=== PATIENT | female | born 1950 | race Caucasian/White ===

== ENCOUNTER → 2020-01-25 | Outpatient (CLI) | payer OTHER ==
[~2020-01-25] MED LIST: VENL75TA PO
== END ==
LOC: LAB 13:19
PROVIDERS: ATTEND Registered Nurse
DX: Z20.828 Contact with and (suspected) exposure to other viral communicable diseases (principal)
CPT/HCPCS: U0003-CS

== ENCOUNTER → 2020-01-28 | Day surgery (SDC) | payer MEDICARE, OTHER ==
[~2020-01-28] MED LIST changes: +IPRATRPIUM/ALBUTEROL 0.5/2.5MG 3 ML NEBU. NEB PRN; +IV RINGERS SOLUTION,LACTATED 1,000 ML IV SCH; +MIDAZOLAM HCL PF 2 MG/2 ML VIAL. IV ONE; +ONDANSETRON PF 4 MG/2 ML VIAL. IV PRN; +PROPOFOL 10,000 MCG/ML (20ML) VIAL IV ONE
[2020-01-28 13:42] VITALS: BP 114/74
--- NOTE | 2020-02-01 15:07 | PATHOLOGY ---
[facility] Accession Number: [id number] . 01 Material submitted: . colon - TRANSVERSE COLON POLYPS. Modifiers: transverse . 01 Clinical history: . COLONOSCOPY . 02 Diagnosis: Colon biopsy, transverse colon polyp; - Prominent mucosal fold, with small mucosal-associated lymphoid aggregate. LBQ 02/01/2020 1355 Local . 02 Comment: There are no adenomatous changes or evidence of malignancy. (JPM/db; 02/01/2020) . 02 Electronically signed: . Daron Delacruz MD, Pathologist NPI- [id number] . 01 Gross description: . The specimen is received in formalin, labeled "Colby, Antonietta, transverse colon polyp" and consists of a fragment of pink-lobo tissue measuring 0.3 x 0.2 cm which is entirely submitted in A1. (SDY; 01/31/2020) SYU/SYU 01/31/2020 1557 Local . 02 Pathologist provided ICD-10: Z12.11 . 02 CPT . 811733 Specimen Comment: A courtesy copy of this report has been sent to [phone], [phone] Specimen Comment: [id number] Specimen Comment: Report sent to / DR JOHNSTON Performed at: 01 [facility] [address], [place], [place] [id number] MD David Naylor MD Phone: [phone] Performed at: 02 [facility] [address] [place], [place] [id number] MD Draon Delacruz MD Phone: [phone]
== END | disposition home or self-care (01) ==
LOC: SURG 11:11
PROVIDERS: ATTEND Internal Medicine Gastroenterology
DX: Z12.11 Encounter for screening for malignant neoplasm of colon (principal); K63.5 Polyp of colon; K57.30 Diverticulosis of large intestine without perforation or abscess without bleeding; K64.0 First degree hemorrhoids; F41.9 Anxiety disorder, unspecified; F32.9 Major depressive disorder, single episode, unspecified; M19.90 Unspecified osteoarthritis, unspecified site; J44.9 Chronic obstructive pulmonary disease, unspecified; F17.210 Nicotine dependence, cigarettes, uncomplicated; Z80.0 Family history of malignant neoplasm of digestive organs; Z79.899 Other long term (current) drug therapy
CPT/HCPCS: 45380; 88305; J2704; 45378